=== PATIENT | male | born 1975 | race Two or more races ===

== ENCOUNTER 2022-03-20 17:23 | Emergency (ER) | payer MEDICAID ==
[~2022-03-20] VITALS: Ht 165.1 cm; Wt 72.6 kg
--- NOTE | 2022-03-20 17:35 | NUR ---
RECEIVED PT 46 YRS MALE FROM HOME BY [facility] C/O GENRALIZED WEEKNEESS WITH N/V NO SOB OR DISTRESS
--- NOTE | 2022-03-20 18:24 | NUR ---
DR KANG AT BEDSIDE W/ SCOUT SNIPER FOR EVAL
[2022-03-20] MEDS ORDERED: IV NS 0.9% 1,000 ML IV ONE (19:00)
--- NOTE | 2022-03-20 19:08 | NUR ---
LAC #20G S/L BLOOD COLLECTED AND SENT TO LAB
--- NOTE | 2022-03-20 19:20 | NUR ---
COVID AND INFLUENZA SWAB COLLECTED AND SENT TO LAB
--- NOTE | 2022-03-20 19:33 | NUR ---
URINE COLLECTED AND SENT TO LAB
--- NOTE | 2022-03-20 19:34 | NUR ---
HAND OFF CHRISTI ARCOS
--- NOTE | 2022-03-20 19:42 | NUR ---
PT TAKEN TO CT [facility]IA [facility]
[2022-03-20 20:01] LABS: BASOPHILS % (AUTO) 0.4 % (0.0-2.0); EOSINOPHILS % (AUTO) 0.2 % (0.0-6.0); HEMATOCRIT 41 % (39-51); LYMPHOCYTES # (AUTO) 0.9 K/uL (0.8-4.8); LYMPHOCYTES % (AUTO) 9.4 % (20.0-44.0); MEAN CORPUSCULAR HGB CONC 34 g/dl (31.0-36.0); MEAN CORPUSCULAR VOLUME 91 fL (80-96); MONOCYTES # (AUTO) 0.4 K/uL (0.1-1.30); MONOCYTES % (AUTO) 3.8 % (2.0-12.0); NEUTROPHILS # (AUTO) 8.2 K/uL (1.8-8.9); NEUTROPHILS % (AUTO) 86.2 % (43.0-81.0); PLATELET COUNT (AUTO) 241 K/uL (150-450); RED BLOOD CELL COUNT(AUTO) 4.54 MIL/uL (4.5-6.0); WHITE BLOOD COUNT (AUTO) 9.5 K/uL (4.3-11.0)
[2022-03-20 20:05] LABS: CALCIUM, SERUM 8.3 mg/dL (8.5-10.1); CARBON DIOXIDE 26 mmol/L (21-32); CHLORIDE 103 mmol/L (98-107); CREATININE 0.8 mg/dL (0.6-1.3); GLUCOSE 99 mg/dL (74-106); SODIUM SERUM 135 mmol/L (136-145); UREA NITROGEN, BLOOD 9 mg/dL (7-18)
[2022-03-20 20:23] LABS: ALANINE AMINOTRANSFERASE 25 U/L (12-78); ALKALINE PHOSPHATASE 129 U/L (46-116); ASPARTATE AMINOTRANSFERASE 20 U/L (15-37); BILIRUBIN,DIRECT 0.1 mg/dL (0.0-0.2); BILIRUBIN,TOTAL 0.6 mg/dL (0.2-1.0); TOTAL PROTEIN, SERUM 7.4 g/dL (6.4-8.2)
[2022-03-20 20:25] LABS: ALCOHOL, BLOOD < 10 mg/dL (0-0)
[2022-03-20 20:46] LABS: BILIRUBIN,URINE NEGATIVE (NEGATIVE); COLOR,URINE YELLOW (YELLOW); LEUKOCYTE ESTERASE ,URINE NEGATIVE (NEGATIVE); NITRITE, URINE NEGATIVE (NEGATIVE); PROTEIN,URINE NEGATIVE (NEGATIVE); UGLUCOSE NEGATIVE (NEGATIVE); UROBILINOGEN,URINE 0.2 EU/dL (0.2)
[2022-03-20 20:56] LABS: BACTERIA,URINE None seen /HPF (None Seen); RBC,URINE 0-2 /HPF (0-2); SQUAMOUS EPITHELIAL CELL,UR 0-2 /HPF (None Seen); URINE AMORPHOUS PHOSPHATES Few /HPF (None Seen); WBC,URINE 0-2 /HPF (0-3)
[2022-03-20] MEDS ORDERED: ACETAMINOPHEN 325 MG TABLET PO ONE (22:30)
[2022-03-20 22:36] VITALS: BP 107/55
--- NOTE | 2022-03-20 22:48 | NUR ---
FACESHEET AND CLINICALS FAXED TO [facility].
--- NOTE | 2022-03-21 02:38 | NUR ---
PT ACCEPTED [place] [facility] [place] [facility] FRANKS CALL FOR REPORT [phone]
--- NOTE | 2022-03-21 02:42 | NUR ---
CALLED [facility] FOR TRANSPORTATION ETA IS 30 MIN
--- NOTE | 2022-03-21 02:51 | NUR ---
REPORT GIVEN TO CRISTI RIZZO RN FOR CELESTINE
--- NOTE | 2022-03-21 03:00 | NUR ---
REPORT GIVEN TO [facility] & [facility] TO TRANSFER PT TO [facility]. VSS. ALL BELONGINGS WITH PT.
== END 2022-03-21 03:16 ==
LOC: ER 17:34
DX: F32.A Depression, unspecified (principal); R51.9 Headache, unspecified; Z20.822 Contact with and (suspected) exposure to COVID-19
CPT/HCPCS: 99284; 96360; 87804; 70450; 85025; 80048; 80076; 81001; 36415; 87426; 80143; 80320; 80307; J7030; C9803; G0480